=== PATIENT | male | born 1935 | race Caucasian/White ===

== ENCOUNTER → 2019-01-22 | Outpatient (CLI) | payer MEDICARE, BC ==
--- NOTE | 2019-01-22 13:31 | CONS ---
Assessment/Plan Assessment/Plan Hospital Course (Demo Recall) 83-year-old male with 1 week of right lateral hip pain. His examination history is consistent with right greater trochanteric bursitis and IT band tendinitis. His hip is functioning very well from a mechanical standpoint. Radiographs show no significant changes since 2011. In addition to his greater trochanteric bursitis he has some balance issues as well. He continues to require cane but does feel unsteady on his feet. Plan: Physical therapy for right greater trochanteric bursitis and IT band tendinitis Physical therapy for gait training and balance. Recommend continued use of a gait aid and increasing to either a 4 pronged cane or using a walker as patient is significant fall risk Consultation Date/Type/Reason Admit Date/Time Date of Consultation: Jan 22, 2019 Reason for Consultation Right hip pain Date/Time of Note DATE: 01/22/19 TIME: 13:25 Hx of Present Illness This is a 83-year-old male who presents with a history of right hip pain. He had a right total hip arthroplasty [address] Tipton. Patient states the pain is in the lateral aspect of the hip times 1 week. There was no specific injury. The pain does radiate to the knee. It is described as sharp at times and as a dull ache. The pain is rated as a 2/10 with activity. Walking tolerance is limited. Cane for external support. The patient does admit to a limp. It is difficult to sleep on the affected side at night secondary to pain. There are no symptoms to suggest referred pain from the back with radicular symptoms. Treatment to date has included activity modification, cane support devices. The patient states that treatment to date has not provided adequate relief of symptoms, prompting consultation. Duration: 1 Injury: No Walking tolerance: Limited Limp: Yes Support: Cane. Patient also has balance issues Stairs: Avoids Physical Therapy: no Injections: No NSAID's: Contraindicated secondary to cardiac disease Prior surgery: Right total hip Back pain: No Knee pain: Yes Risk of AVN : No Patient denies fever, chills, shortness of breath, chest pain, nausea/vomiting, constipation, diarrhea, numbness, and tingling. Past Medical History Coronary artery disease Kidney stones Diabetes Hypothyroidism Allergies: Coded Allergies: Isosorbide (Verified Allergy, Severe, RASH, 02/21/07) Past Surgical History Coronary artery stents x2 Right total hip arthroplasty [address] Tipton Right total knee arthroplasty [address] Roman Left total knee arthroplasty [address] Sewell Family History Significant Family History: no pertinent family hx Social History Alcohol Use: none Smoking Status: Former smoker Drug Use: none Exam/Review of Systems Exam Vitals Weight: 198 Height: 6 foot Temperature: 90.2 Heart Rate: 88 Blood Pressure: 125/50 Respiratory Rate: 12 Exam General: Alert, oriented. Vital signs: Noted on the chart. Heart: Regular rate and rhythm. Lungs: No respiratory distress. No accessory muscle use. Musculoskeletal: Well developed male in no apparent distress. Gait demonstrates a mild Trendelenburg with antalgic components and no short leg component. Patient also has signs of disequilibrium. Standing, the pelvis is level and supine there is no true leg length discrepancy. There is tenderness over trochanteric bursa and IT band. Range of motion: Flexion: 110 Extension: 0 Internal rotation: 20 External rotation: 30 Abduction: 45 Adduction: 10 Sitting there is no pelvic obliquity. Minimal to no pain at the extremes of mot ion of the affected hip. Skin was intact throughout both lower extremities. Sensation intact to light touch in a sural, saphenous, deep peroneal, superficial peroneal, medial and lateral plantar nerve distribution. Neurovascular exam showed 5/5 strength in the abductors, quads, EHL/tibialis anterior/gastroc. Normal and symmetrical pulses were palpated in both the dorsalis pedis and posterior tibial arteries. There is no sign of venous stasis. Imaging Imaging Xrays obtained in clinic today and personally reviewed by myself: AP pelvis and AP/Lat of the right hip demonstrate hip s/p ALEXA with hip reduced. Components in good position and alignment. No signs of wear, osteolysis, loosening, component failure, or fracture. No acute complications. This was compared from x-rays in 2011 with no significant changes. JAYA BROOKS MD Jan 22, 2019 13:31
--- NOTE | 2019-01-24 07:57 | RADRPT ---
PROCEDURE: XR pelvis and right Hip. CLINICAL INDICATION: PAIN TECHNIQUE: AP pelvis and AP and frog lateral views of the right hip were performed. COMPARISON: Right hip study 11/02/2012 FINDINGS: Again noted is a total right hip prosthesis without dislocation or loosening. No acute fractures. Mil d degenerate joint disease left hip without dislocation. No focal bony blastic or lytic lesions. Smal l soft-tissue dystrophic calcification unchanged in the lateral right hip region. Soft tissues are ot herwise unremarkable. IMPRESSION: 1. Unremarkable right hip prosthesis. Small dystrophic calcification adjacent to the right hip. 2. 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 RPTAT:AAJJ Physician Alexia Date Time Electronically viewed and signed by Nikia Gonsalez Physician on 01/24/2019 07:56 /
== END | disposition home or self-care (01) ==
LOC: HKI 12:13
PROVIDERS: ATTEND Orthopaedic Surgery Adult Reconstructive Orthopaedic Surgery
DX: M70.61 Trochanteric bursitis, right hip (principal); M25.551 Pain in right hip; Z96.641 Presence of right artificial hip joint
CPT/HCPCS: 73502; G0463